=== PATIENT | female | born 1960 | race Caucasian/White ===

== ENCOUNTER 2018-10-30 11:32 | Inpatient (IN) | payer MEDICAID, OTHER ==
[~2018-10-30 11:32] MED LIST: Iopamidol 370 76% 100 ML VIAL ONE
[2018-10-30 12:19] LABS: Actual Bicarbonate (HCO3a) 22.9 mEq/L (22-28); Analyzer IN Cardio ER; Base Excess (BEa) -0.9 mEq/L (-2.0 to +3.0); CO2 Tension 35.7 mmHg (35.0-45.0); Calcium, Ionized 1.16 mmol/L (1.12-1.30); Carboxyhemoglobin (COHb) 4.3 gm% (0.0-3.0); Hemoglobin (Hb) 15.4 g/dL (12.0-16.0); O2 Tension (PaO2) 59.6 mmHg (80.0-100.0); Potassium - ABG Lab 3.78 mmol/L (3.70-5.30); pH, Arterial 7.43 (7.35-7.45)
[2018-10-30 12:20] LABS: #Basophils 0.1 thou/uL (0.0-0.2); #Eosinphils 0.7 thou/uL (0.0-0.7); #Lymphocytes 1.8 thou/uL (1.20-3.40); #Monocytes 0.6 thou/uL (0.11-0.59); #Neutrophils 12.2 thou/uL (1.40-6.50); %Basophils 0.6 % (0.0-1.0); %Eosinophils 4.6 % (0.0-10.0); %Lymphocytes 11.6 % (21.0-51.0); %Monocytes 3.7 % (0.0-10.0); %Neutrophils 79.5 % (42.0-75.0); Mean Corpuscular HGB CONC 33.2 g/dL (32.0-36.0); Mean Corpuscular Hemoglobin 32.1 pg (27.0-31.0); Mean Corpuscular Volume 96.8 fL (78.0-98.0); Platelet Count 251 thou/uL (130-400); RBC Distribution Width 12.8 % (11.5-14.5); Red Blood Cell (RBC) Count 4.67 mill/uL (4.20-5.40); White Blood Cell (WBC) Count 15.3 thou/uL (4.8-10.8)
[2018-10-30 12:20] LABS: ALV-art Gradient 45.505 (0-20); Puncture Site LRA
[2018-10-30 12:43] LABS: ALT (SGPT) 26 U/L (8-55); AST (SGOT) 14 U/L (5-34); Alkaline Phosphatase 114 U/L (40-150); Anion Gap 14 mmol/L (10-20); BUN (Urea Nitrogen) 9 mg/dL (9.8-20.1); Bilirubin, Total 0.7 mg/dL (0.2-1.2); CK (CPK) 79 U/L (29-168); Calc. Creatinine Clearance 0 mL/min (70-130); Calcium 9.6 mg/dL (7.8-10.44); Carbon Dioxide 21 mmol/L (22-29); Chloride 106 mmol/L (98-107); Estimated GFR-MDRD 74; Globulin 3.5 g/dL (2.4-3.5); Glucose 116 mg/dL (70-105); Lipase 25 U/L (8-78); Protein, Total 7.5 g/dL (6.0-8.3); Sodium 137 mmol/L (136-145)
[2018-10-30 12:47] LABS: CKMB 0.4 ng/mL (0-6.6)
[2018-10-30 12:49] LABS: Bilirubin Small (Negative); Blood, Urine Negative (Negative); Clarity CLEAR (Clear); Glucose, Urine (Dipstick) Negative (Negative); Leukocyte Trace (Negative); Nitrite Negative (Negative); Protein, Urine (Dipstick) Negative (Neg-Trace); Specific Gravity, Urine 1.022 (1.002-1.036)
[2018-10-30 12:51] LABS: Bacteria/HPF None Seen HPF (None Seen); Hyaline Casts/LPF 0-3 HYALINE CAST LPF (0-3 Hyaline); Pathc Cast-AUWi Flag 0.58 (0-2.49); Squamous Epithelial 0-3 HPF (0-3); WBC/HPF 0-3 HPF (0-3)
[2018-10-30] MEDS ORDERED: Magnesium 2 GM/50 ML 2 GM in Premix Bag 1 BAG IVPB SCH (14:00)
--- NOTE | 2018-10-30 14:34 | CT ---
CT OF THE CHEST WITH CONTRAST: Date: 10/30/18 COMPARISON: None. HISTORY: Dyspnea. Albuterol treatments for the last week with no resolution of symptoms. TECHNIQUE: Multiple contiguous axial images were obtained in a CTA of the chest with contrast per pulmonary embo lism protocol. 3D oblique MIP reformats and direct coronal reformats were performed. FINDINGS: The pulmonary arteries are well opacified without filling defects to suggest pulmonary emboli. The he art is normal in size without focal cardiac abnormality. No hilar or mediastinal lymphadenopathy are seen. There are mildly prominent right hilar lymph nodes measuring up to 2.4 cm in size. No left hilar or m ediastinal enlarged lymph nodes are seen. Air space opacities are seen in the bilateral upper lobes consistent with acute infiltrates. No pleur al effusion is seen. No pneumothorax is present. The visualized subdiaphragmatic structures are unremarkable. Mild degenerative changes are seen in th e spine. The chest wall soft tissues are unremarkable. IMPRESSION: 1. No evidence of pulmonary thromboembolism. 2. Bilateral upper lobe infiltrates. POS: [facility]
[2018-10-30] MEDS ORDERED: Sodium Chloride 0.9% 1,000 ML IV SCH (15:31)
[2018-10-30 16:43] VITALS: BMI 30.7
[2018-10-30] MEDS ORDERED: Benzonatate 100 MG CAP PO PRN (20:09)
[2018-10-30] MEDS ORDERED: hydrALAZINE 20 MG/ML VIAL SLOW IVP PRN (20:09)
[2018-10-30] MEDS ORDERED: Ondansetron ODT 4 MG TAB PO PRN (20:09)
[2018-10-30] MEDS ORDERED: Ondansetron PF 4 MG/2 ML Vial IVP PRN (20:09)
[2018-10-30] MEDS ORDERED: Diabetic Tussin 200 MG/10 ML UDCUP PO PRN (20:09)
[2018-10-30] MEDS ORDERED: Acetaminophen 500 MG TAB PO PRN (20:09)
[2018-10-30] MEDS ORDERED: Mometasone/Formoterol 120 PUFF INHALER INH SCH (20:30)
[2018-10-30] MEDS: DULoxetine 60 MG CAP PO SCH (20:37)
[2018-10-30] MEDS: Famotidine 20 MG TAB PO SCH (20:38)
[2018-10-30] MEDS: guaiFENesin ER 600 MG TAB PO SCH (20:38)
[2018-10-30] MEDS: Nicotine 14 MG PATCH TD SCH (20:49)
[2018-10-30] MEDS ORDERED: cefTRIAXone\\ROCEPHIN 2 GM in Sodium Chloride 0.9% 100 ML IVPB SCH (21:00)
[2018-10-30] MEDS ORDERED: Dexamethasone 4 mg/ml Vial SLOW IVP SCH (21:00)
--- NOTE | 2018-10-31 03:35 | HP ---
PRIMARY CARE PROVIDER: [facility] in [place], [place]. CHIEF COMPLAINT: Shortness of breath and cough. HISTORY OF PRESENT ILLNESS: This is a 58-year-old female, who presents to [facility] Emergency Department, complaining of increasing shortness of breath over the last one and a half weeks. The patient states she saw her primary care provider and was placed on antibiotics and prednisone therapy with some improvement in her symptoms. The patient states she had increasing shortness of breath and was using her home nebulizer and metered-dose inhalers with increasing frequency without specific relief. The patient denied any recent exposure history, but does relate a history of fungal infection in her lungs diagnosed in [place], treated for approximately one year, finishing the therapy of one year prior to this evaluation. The patient is unsure of the medication that she took, but states she took several oral medications. The patient states she underwent biopsy of her lung to confirm the diagnosis. The patient denies any other prior history of pneumonia or chronic lung infections, but does admit to smoking up to half a pack of cigarettes daily. The patient states she recently relocated to the [place] area after moving from [place] approximately 4-6 weeks prior to this evaluation. The patient states increased shortness of breath with minimal exertion with persistent cough, intermittently productive of sputum. The patient was evaluated at [facility] and was noted with O2 saturations dropping into the low 90% range on room air; however, increasing to the mid 90% range on oxygen support. In the emergency room, the patient underwent chest imaging showing bilateral upper lobe infiltrates with CT imaging of the chest showing bilateral upper lobe changes concerning for pneumonia. The patient received intravenous normal saline, magnesium sulfate, and Levaquin. PAST MEDICAL HISTORY: 1. Tobacco abuse. 2. Questionable history of fungal infection of the lung. 3. History of arrhythmia. PAST SURGICAL HISTORY: 1. Status post pacemaker placement with subsequent removal. 2. Status post hysterectomy. CURRENT MEDICATIONS: Cymbalta 60 mg p.o. daily. ALLERGIES: MORPHINE, SULFA. FAMILY HISTORY: Positive for hypertension. SOCIAL HISTORY: The patient resides in [place], [place]. Unemployed currently. Smokes up to half a pack of cigarettes daily. Occasional alcohol use. No illicit drug use. Functional of all activities of daily living. REVIEW OF SYSTEMS: CONSTITUTIONAL: Negative for weight loss or gain, ability to conduct usual activities. SKIN: Negative for rash, itching. EYES: Negative for double vision, pain. ENT/MOUTH: Negative for nose bleeding, neck stiffness, pain, tenderness. CARDIOVASCULAR: Negative for palpitations, dyspnea on exertion, orthopnea. RESPIRATORY: Negative for shortness of breath, wheezing, cough, hemoptysis, fever or night sweats. GASTROINTESTINAL: Negative for poor appetite, abdominal pain, heartburn, nausea, vomiting, constipation, or diarrhea. GENITOURINARY: Negative for urgency, frequency, dysuria, nocturia. MUSCULOSKELETAL: Negative for pain, swelling. NEUROLOGIC/PSYCHIATRIC: Negative for anxiety, depression. ALLERGY/IMMUNOLOGIC: Negative for skin rash, bleeding tendency. Otherwise, negative except as stated per HPI. PHYSICAL EXAMINATION: VITAL SIGNS: On admission, blood pressure 112/71, pulse 81, respiratory rate 20, temperature 97.7 degrees Fahrenheit, O2 saturation 92% on room air. GENERAL APPEARANCE: This is a 58-year-old female, alert and oriented x3, pleasant, in no acute distress. HEENT: Pupils are equal, round, reactive to light and accommodation. Extraocular muscles are intact. No scleral icterus. No conjunctival injection. Nares patent. OP is clear. Teeth in poor repair. NECK: Supple. No cervical adenopathy. No thyromegaly. No carotid bruits. No JVD appreciated. Cervical spine with full active and passive range of motion. No meningeal signs appreciated. CHEST: Coarse breath sounds bilaterally, worse in the upper lobes. Expiratory wheezes bilaterally. Diminished air flow. CARDIOVASCULAR: S1, S2 with tachycardia. No murmur, rub, or gallop appreciated. ABDOMEN: Rounded, soft, nontender, nondistended. Bowel sounds are positive in all 4 quadrants. There is no hepatosplenomegaly. No abdominal bruits. No rebound or guarding appreciated. EXTREMITIES: Warm and dry with fair turgor. No clubbing, cyanosis, or asymmetric edema appreciated. Pulses are palpable distally at the dorsalis pedis, posterior tibial, and popliteal arteries bilaterally. Capillary refill is less than 2 seconds. NEUROLOGIC: Cranial nerves 2 through 12 are grossly intact. No focal or lateralizing signs appreciated. PERTINENT LAB AND X-RAY FINDINGS: Basic metabolic profile within normal limits. Lactic acid level 1.2. LFTs within normal limits. Lactate dehydrogenase 227. BNP 12. Lipase 25. CBC showed a white blood cell count of 15.3, hemoglobin 15, hematocrit 45, platelet count 251 with 80% neutrophilia. ABG dated 10/30/2018 at 12:06 p.m. showed a pH of 7.43, pCO2 of 35.7, pO2 of 59.6, bicarb 22.9 with O2 saturation 92% on room air. Influenza A and B antigen, 10/30/2018, negative. CT angiogram of the chest dated 10/30/2018 showed no evidence for pulmonary embolus. Bilateral upper lobe infiltrates. ASSESSMENT AND PLAN: 1. Acute hypoxic respiratory failure. The patient will be admitted to the medical floor. Suspect secondarily to bilateral upper lobe bacterial pneumonia and potential influence of chronic obstructive pulmonary disease in addition to likely bilateral upper lobe pneumonias. We will continue oxygen supplementation to maintain O2 saturation greater than or equal to 90%. See management as outlined below. 2. Bilateral upper lobe bacterial pneumonia. Suspect community-acquired given patient's history. We will continue Rocephin 2 g IV q.24 hours with additional Levaquin 750 mg IV q.24 hours. Check sputum culture. Blood cultures x2 pending. Continue bronchodilator therapy with DuoNebs q.4 hours. Add Dulera two puffs inhaled b.i.d. 3. Acute chronic obstructive pulmonary disease exacerbation. We will continue treatment as outlined previously. Add Dulera 2 puffs inhaled b.i.d. Solu-Medrol 40 mg IV q.6 hours. 4. Tobacco abuse. We will offer smoking cessation resources prior to discharge. Nicotine patch 14 mg transdermally daily. 5. Prophylaxis. SCDs while in bed. Pepcid 20 mg p.o. b.i.d. 6. Code status is FULL. Surrogate medical decision maker is the patient's son. Job ID: [id number]
[2018-10-31 05:58] LABS: Anion Gap 14 mmol/L (10-20); BUN (Urea Nitrogen) 10 mg/dL (9.8-20.1); Calc. Creatinine Clearance 96 mL/min (70-130); Calcium 9.3 mg/dL (7.8-10.44); Carbon Dioxide 19 mmol/L (22-29); Chloride 110 mmol/L (98-107); Estimated GFR-MDRD 68; Glucose 268 mg/dL (70-105); Potassium 4.3 mmol/L (3.5-5.1); Sodium 139 mmol/L (136-145)
[2018-10-31] MEDS: Mometasone/Formoterol 120 PUFF INHALER INH SCH ×2 (06:41→19:47)
[2018-10-31 08:08] LABS: Band 9 % (5-11); Hemoglobin 13.4 g/dL (12.0-16.0); Lymphocytes 8 % (21-51); MDiff Complete? YES; Mean Corpuscular HGB CONC 33.4 g/dL (32.0-36.0); Mean Corpuscular Hemoglobin 32.7 pg (27.0-31.0); Monocytes 4 % (0-10); Neutrophil 79 % (42-75); PLT Morphology Comment Appears Adequate; Platelet Clumps MODERATE; Platelet Count 165 thou/uL (130-400); RBC Distribution Width 12.8 % (11.5-14.5); Red Blood Cell (RBC) Count 4.09 mill/uL (4.20-5.40); White Blood Cell (WBC) Count 8.4 thou/uL (4.8-10.8)
[2018-10-31] MEDS: guaiFENesin ER 600 MG TAB PO SCH ×2 (08:16→19:36)
[2018-10-31] MEDS: Famotidine 20 MG TAB PO SCH ×2 (08:16→19:36)
[2018-10-31 13:58] LABS: HIV (1/2) Antibody/Antigen Non-Reactive (NonReactive); HIV 1/2 INDEX 0.09 S/CO (<1.00)
--- NOTE | 2018-10-31 17:32 | PDOC.PN ---
- Subjective Encounter Start Date: 10/31/18 Encounter Start Time: 17:30 Subjective: f/u for COPD exacerbation and ?PNA on current Levaquin/Rocephin. -: Feels better today and less dyspnea. - Objective Resuscitation Status - Order Detail: 10/30/18 20:01 Resuscitation Status Routine Resuscitation Status: FULL: Full Resuscitation MAR Reviewed: Yes Vital Signs & Weight: Vital Signs (12 hours) Temp Pulse Resp BP Pulse Ox 10/31/18 11:55 97.4 F L 71 18 114/64 95 10/31/18 08:05 97.4 F L 87 20 142/72 H 95 10/31/18 08:00 95 10/31/18 06:43 96 10/31/18 06:42 94 16 96 10/31/18 06:41 94 16 95 Weight Weight 184 lb 5 oz I&O: 10/30/18 10/31/18 11/01/18 06:59 06:59 06:59 Intake Total 340 Balance 340 Result Diagrams: 10/31/18 05:10 10/31/18 05:10 Additional Labs: Microbiology 10/30/18 11:52 Nasal swab Influenza Types A,B Direct EIA - Final 10/30/18 12:05 Venous blood - Right Hand Blood Culture - Preliminary Specimen has been received and culture in progress. No Growth to date. 10/30/18 12:05 Venous blood - Left Arm Blood Culture - Preliminary Specimen has been received and culture in progress. No Growth to date. Laboratory Tests 10/30/18 10/31/18 12:05 06:56 WBC 15.3 H HIV 1&2 Antigen & Ab Non-Reactive Phys Exam - Physical Examination Constitutional: NAD HEENT: PERRLA, sclera anicteric, oral pharynx no lesions Neck: no nodes, no JVD, supple, full ROM few scattered coarse sounds and wheezes S1, S2 Cardiovascular: RRR, no significant murmur, no rub, gallop Gastrointestinal: soft, non-tender, no distention, positive bowel sounds Musculoskeletal: no edema, pulses present Neurological: normal sensation, moves all 4 limbs Psychiatric: normal affect, A&O x 3 Skin: normal turgor, cap refill <2 seconds Dx/Plan (1) Acute respiratory failure with hypoxia Code(s): J96.01 - ACUTE RESPIRATORY FAILURE WITH HYPOXIA Status: Acute Comment: Improved with pulmonary supportive measures, continue tx as outlined below (2) COPD with acute exacerbation Code(s): J44.1 - CHRONIC OBSTRUCTIVE PULMONARY DISEASE W (ACUTE) EXACERBATION Status: Acute Comment: Continue Duonebs, Solumedrol, Levaquin (3) Tobacco abuse Code(s): Z72.0 - TOBACCO USE Status: Chronic Comment: Tobacco cessation resources, Nicotine patch (4) Hyperglycemia Code(s): R73.9 - HYPERGLYCEMIA, UNSPECIFIED Status: Acute Comment: Suspected steroid-induced, serial monitoring - Plan continue antibiotics, nursing home social worker, respiratory therapy, out of bed/ambulate , DVT proph w/SCDs Stable overall -: Continue Duonebs, Levaquin, Solumedrol -: Smoking cessation resources -: Appreciate Pulmonology assistance -: Continue Mucinex and Dulera * Likely home in am
[2018-10-31] MEDS: DULoxetine 60 MG CAP PO SCH (19:35)
[2018-10-31] MEDS: Nicotine 14 MG PATCH TD SCH (19:42)
--- NOTE | 2018-10-31 20:38 | CON ---
DATE OF CONSULTATION: 10/31/2018 CONSULTING PHYSICIAN: Jabari De La Fuente MD REASON FOR CONSULTATION: Possible fungal pneumonia. HISTORY OF PRESENT ILLNESS: This is a 58-year-old female, who came to the hospital with shortness of breath and congestion of several months' duration. She was sent by her clinic yesterday because her symptoms have been persistent and have been refractory to outpatient therapy. The patient is a long-term smoker, having started about age 14. She has generally averaged about a pack per day, but has slowed down to about one-half pack per day. She states she has never been told to quit smoking in the past. She recently moved back to this area after living in [place]. About a year ago, she saw her primary care physician and produced a sputum sample, which had some type of fungus in it, and she was treated with an antifungal agent. She states that she did not see a lung specialist and did not have a bronchoscopy or lung biopsy. Several months later, she underwent a hysterectomy. There was concern that she had some type of uterine cancer, and a CT of the abdomen had demonstrated a liver lesion. She had a liver biopsy at the same time she had the hysterectomy, and liver finding was that of a hemangioma. Therefore, she has never had any type of lung biopsy in the past. She has lived in [place], [place], [place], and [place], [place]. 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 PAST MEDICAL HISTORY: 1. Probable COPD. 2. Cardiac arrhythmia. 3. Postmenopausal. PAST SURGICAL HISTORY: 1. Pacemaker placement, subsequent removal. 2. Hysterectomy. 3. Liver biopsy. MEDICATIONS: Prior to admission, Cymbalta 60 mg daily. ALLERGIES: MORPHINE AND SULFA. FAMILY MEDICAL HISTORY: Remarkable for hypertension. SOCIAL HISTORY: Smoking history as outlined above. Denies any alcohol use. Does not use any illicit drugs. REVIEW OF SYSTEMS: She has had salivary gland removed in the left neck. She has had no fever, chills, nausea, vomiting, hematemesis, melena, hematochezia, hematuria, or dysuria. PHYSICAL EXAMINATION: VITAL SIGNS: Temperature 97.4, pulse 71, respirations 18, O2 saturation 95%, blood pressure 114/64. GENERAL: She is awake and alert, and in no distress. HEENT: Remarkable for rather poor dentition. NECK: She has some swelling along the left pole of her thyroid. There is no JVD. No carotid bruits. LUNGS: She has bilateral mild end-expiratory wheezing. CARDIOVASCULAR: S1 and S2 regular without audible murmur. ABDOMEN: Liver is not palpable. Spleen not palpable. She has normoactive bowel sounds. EXTREMITIES: No clubbing, cyanosis, or edema. LABORATORY DATA: White blood cell count 8.4, hematocrit 40, platelet count 165. PH 7.43, pCO2 of 35, pO2 of 60. Sodium 139, potassium 4.3, chloride 110, CO2 of 19, BUN 10, creatinine 0.8, glucose 268, LDH 227. IMAGING DATA: CT of the chest was reviewed personally. She has some chronic interstitial changes in the apices of both lungs. We have no previous films for comparison. She had no evidence of pulmonary thromboembolism. ASSESSMENT: 1. I seriously doubt the patient had any type of fungal infection in the past. Her sputum culture is essentially worthless in making that diagnosis. 2. I suspect current findings represent scarring in the upper lobes. Her symptoms are more or less due to chronic obstructive pulmonary disease with exacerbation. 3. Tobacco abuse. RECOMMENDATIONS: I would treat this as a COPD exacerbation with broad-spectrum IV antibiotics, breathing medication, and IV steroids. As a precaution, I am going to go ahead and check an HIV test. She needs a followup CT scan in 3 to 4 months to follow up the interstitial findings in the upper lobes. The above encompassed 70 minutes of time; of that time, greater than 50% was spent with the patient and/or in the patient's unit in the hospital. Job ID: [id number]
[2018-11-01] MEDS: Mometasone/Formoterol 120 PUFF INHALER INH SCH (07:30)
[2018-11-01] MEDS: Famotidine 20 MG TAB PO SCH (08:08)
[2018-11-01] MEDS: guaiFENesin ER 600 MG TAB PO SCH (08:08)
--- NOTE | 2018-11-01 09:01 | PRG ---
DATE OF SERVICE: 11/01/2018 SUBJECTIVE: She feels better today and wants to go home. OBJECTIVE: VITAL SIGNS: Temperature 97.4, pulse 79, respirations 18, O2 saturation 97% on room air, and blood pressure 127/68. HEENT: Unremarkable. NECK: No adenopathy or JVD. LUNGS: Clear without wheezing. ABDOMEN: Soft. CARDIAC: S1 and S2 regular. EXTREMITIES: No edema. ASSESSMENT: Chronic obstructive pulmonary disease with exacerbation. PLAN: The patient is stable to go home. I would send her home on tapered dose of steroids. Continue antibiotics for about 7 days and give her some breathing treatments. I would recommend that she follow up with me in about 3 to 4 months to repeat the CT of the chest. I have recommended that she stop smoking. Of note, the patient's HIV test taken yesterday was nonreactive. Job ID: [id number]
--- NOTE | 2018-11-01 11:04 | PQF ---
SKY CLIFTON VASHTI TUCKER SILVESTRE DO [id number] CLINICAL DOCUMENTATION IMPROVEMENT CLARIFICATION FORM: ICD-10 Updated PLEASE DO AN ADDENDUM TO THE PROGRESS NOTE WITH ANY DOCUMENTATION UPDATES OR ADDITIONS AND CARRY THROUGH TO DC SUMMARY. THANK YOU. DATE: 11/01 ATTN: DR. TUCKER SILVESTRE Please exercise your independent, professional judgment in responding to the clarification form. Clinical indicators are provided on the bottom of this form for your review. Please check appropriate box(s) to clarify if the following diagnosis has been ruled in or ruled out: B UL BACTERIAL PNEUMONIA, SUSPECT COMMUNITY ACQUIRED [ ] Ruled in diagnosis [ ] Continue to treat [ ] Resolved [ x ] Ruled out diagnosis [ ] Other diagnosis [ ] Unable to determine For continuity of documentation, please document condition throughout progress notes and discharge summary. Thank You. CLINICAL INDICATORS - SIGNS / SYMPTOMS / LABS ER PHYSICIAN DOCUMENTATION 10/30: MULTIFOCAL PNEU W/HYPOXIA H&P 10/30 -B UL BACTERIAL PNEUMONIA, SUSPECT COMMUNITY ACQUIRED GIVEN PT'S HISTORY NO FURTHER DOCUMENTATION OF PNEUMONIA TO DATE WBC: 15.3 CTA CHEST/THORAX 10/30: IMPRESSION: 2) BILATERAL UL INFILTRATES RISK FACTORS: ACUTE HYPOXIC RESPIRATORY FAILURE COPD EXAC TREATMENTS: PULMONOLOGY CON IV ANTIBIOTICS (LEVAQUIN 10/30 - ; ROCEPHIN 10/30) THANK YOU! Vanessa (This form is maintained as a part of the permanent medical record) 2014 [employer]. All Rights Reserved Vanessa Tolliver RN, BSN [email or web address] Office: [phone] [facility]
[2018-11-01 15:15] VITALS: BP 121/63; TEMP 98.1
--- NOTE | 2018-11-02 07:11 | DIS ---
DATE OF ADMISSION: 10/30/2018 DATE OF DISCHARGE: 11/01/2018 DISCHARGE DIAGNOSES: 1. Acute hypoxic respiratory failure, resolved. 2. Chronic obstructive pulmonary disease with acute exacerbation, improved. 3. Tobacco abuse. 4. Hyperglycemia. CONSULTATIONS: Dr. Omar Aguilera with Pulmonology Service. PERTINENT LABORATORY AND DIAGNOSTIC DATA: Lactic acid level 1.2. LFTs within normal limits. Total CK of 79. BNP 12. Lipase 25. CBC showed a white blood cell count ranged between 8.4 to 15.3, hemoglobin ranged between 13.4 to 15. HIV 1 and 2 antigen and antibody nonreactive on 10/31/2018. Blood cultures x2, dated 10/30/2018, showed no growth at 48 hours. Influenza A and B antigen, dated 10/30/2018, negative. CT angiogram of the chest, dated 10/30/2018, showed no evidence for pulmonary embolus, bilateral upper lobe infiltrates noted. HOSPITAL COURSE: The patient was admitted to the medical floor after initially presenting with shortness of breath and cough in the context of known tobacco abuse. The patient underwent chest imaging including CT angiogram of the chest showing bilateral upper lobe infiltrates and chronic changes in bilateral lung richter. The patient was placed on oxygen supplementation and given IV Solu-Medrol and Levaquin. The patient was initially felt to have a potential bilateral upper lobe bacterial pneumonia, receiving consultation with the Pulmonology Service. The patient was treated for COPD exacerbation after upper lobe infiltrates, likely chronic changes per Pulmonology's review. The patient rapidly clinically improved with pulmonary supportive management and avoidance of tobacco products. The patient received bronchodilator therapy and overall transitioned to room air, maintaining O2 saturations greater than 90%. I have examined the patient at the time of discharge and discussed followup instructions. The patient verbalized her understanding and in agreement, ready for discharge on 11/01/2018. DISCHARGE MEDICATIONS: 1. Levaquin 500 mg one tablet p.o. daily x7 days. 2. Prednisone 10 mg two tablets p.o. b.i.d. x2 days, followed by two tablets p.o. daily x3 days. 3. Cymbalta 60 mg p.o. at bedtime. 4. Breo Ellipta 1 puff inhaled b.i.d. FOLLOWUP: The patient may follow up with [facility] in [place], [place] within 7 days of discharge. The patient may also follow up with Dr. Omar Aguilera with Pulmonology Service and call his office for appointment time and date. CONDITION ON DISCHARGE: Stable. ACTIVITY: Ad dominick. DIET: Heart healthy. CODE STATUS: Full. DISPOSITION: Home on 11/01/2018. Job ID: [id number]
--- NOTE | 2018-11-02 11:58 | EKG ---
Test Reason : Blood Pressure : / mmHG Vent. Rate : 085 BPM Atrial Rate : 085 BPM P-R Int : 132 ms QRS Dur : 084 ms QT Int : 376 ms P-R-T Axes : 010 050 042 degrees QTc Int : 447 ms Normal sinus rhythm Cannot rule out Inferior infarct , age undetermined Abnormal ECG Confirmed by JENY WILKINS, ROSARIO ([id number]), editor & co founder AIME GALARZA ([id number]) on 11/02/2018 11:57:44 AM Referred By: Confirmed By:ROSARIO FERMIN MD
== END 2018-11-01 15:17 | disposition home or self-care (01) | DRG 190 ==
LOC: ERS 11:32 → T4-B 15:08
PROVIDERS: ADMIT Family Medicine; ATTEND Family Medicine
DX: J44.1 Chronic obstructive pulmonary disease with (acute) exacerbation (principal); J96.01 Acute respiratory failure with hypoxia; R73.9 Hyperglycemia, unspecified; F17.210 Nicotine dependence, cigarettes, uncomplicated; I49.9 Cardiac arrhythmia, unspecified; Z78.0 Asymptomatic menopausal state
CPT/HCPCS: 36415; 71275; 80048; 80053; 81003; 81015; 82550; 82553; 82805; 83605; 83615; 83690; 83880; 85007; 85025; 85027; 87040; 87389; 87804; 93005; 94640; 96361; 96365; 96366; 96375; J0696; J1100; J1956; J2920; J7050; J7620

== ENCOUNTER 2019-03-06 10:53 | Outpatient (CLI) | payer OTHER ==
--- NOTE | 2019-03-06 11:26 | RAD ---
CHEST 2 VIEWS: Date: 03/06/19 HISTORY: Dyspnea. COMPARISON: 01/20/14. FINDINGS: Heart size is within normal limits. Lungs are clear. No pneumonia, edema, or pleural effusion. IMPRESSION: No acute intrathoracic disease. Atherosclerosis of aorta. Stable from prior study. POS: OFF
== END 2019-03-06 10:54 | disposition home or self-care (01) ==
LOC: RAD 10:53
PROVIDERS: ATTEND Internal Medicine Critical Care Medicine
DX: R06.00 Dyspnea, unspecified (principal); I70.0 Atherosclerosis of aorta
CPT/HCPCS: 71046

== ENCOUNTER 2020-01-16 10:39 | Emergency (ER) | payer OTHER ==
--- NOTE | 2020-01-16 11:02 | RAD ---
Exam: Chest one view HISTORY:Anxiety. Comparison: 09/10/2015 FINDINGS: Cardiac silhouette: Normal Aorta: Unremarkable Pulmonary vessels: Normal Costophrenic angles: Clear LUNGS: No masses or consolidation. Pneumothorax: None Osseous abnormalities: None IMPRESSION: No acute cardiopulmonary process.
[2020-01-16] MEDS ORDERED: methylPREDNISolone Sod Succ/PF 125 MG/2 ML VIAL ONE (11:04)
[2020-01-16 12:07] LABS: #Basophils 0.1 thou/uL (0.0-0.2); #Eosinphils 0.6 thou/uL (0.0-0.7); #Lymphocytes 3.8 thou/uL (1.20-3.40); #Monocytes 0.7 thou/uL (0.11-0.59); #Neutrophils 6.1 thou/uL (1.40-6.50); %Basophils 1.1 % (0.0-1.0); %Eosinophils 5.2 % (0.0-10.0); %Lymphocytes 33.5 % (21.0-51.0); %Monocytes 5.9 % (0.0-10.0); %Neutrophils 54.3 % (42.0-75.0); Hemoglobin 15.2 g/dL (12.0-16.0); Mean Corpuscular Hemoglobin 32.6 pg (27.0-31.0); Mean Corpuscular Volume 93.2 fL (78.0-98.0); Mean Platelet Volume 7.9 fL (7.4-10.4); Platelet Count 233 thou/uL (130-400); Red Blood Cell (RBC) Count 4.66 mill/uL (4.20-5.40); White Blood Cell (WBC) Count 11.2 thou/uL (4.8-10.8)
[2020-01-16 12:12] LABS: ALT (SGPT) 26 U/L (8-55); AST (SGOT) 28 U/L (5-34); Albumin 4.3 g/dL (3.5-5.0); Alkaline Phosphatase 92 U/L (40-110); Anion Gap 16 mmol/L (10-20); BUN (Urea Nitrogen) 20 mg/dL (9.8-20.1); Bilirubin, Total 0.3 mg/dL (0.2-1.2); Calc. Creatinine Clearance 0 mL/min (70-130); Calcium 9.5 mg/dL (7.8-10.44); Carbon Dioxide 21 mmol/L (22-29); Chloride 108 mmol/L (98-107); Estimated GFR-MDRD 63; Globulin 3.4 g/dL (2.4-3.5); Glucose 110 mg/dL (70-105); Potassium 4.6 mmol/L (3.5-5.1); Protein, Total 7.7 g/dL (6.0-8.3); Sodium 140 mmol/L (136-145)
== END 2020-01-16 13:34 | disposition home or self-care (01) ==
LOC: ERS 10:39
DX: J44.1 Chronic obstructive pulmonary disease with (acute) exacerbation (principal); I49.9 Cardiac arrhythmia, unspecified; F41.9 Anxiety disorder, unspecified; F17.210 Nicotine dependence, cigarettes, uncomplicated; Z79.51 Long term (current) use of inhaled steroids; Z79.899 Other long term (current) drug therapy
CPT/HCPCS: 71045; 80053; 84484; 85025; 93005; 94640; 96374; J2930; J7620